=== PATIENT | male | born 1955 | race Caucasian/White ===

== ENCOUNTER 2019-07-07 03:06 | Emergency (ER) | payer MEDICARE, MEDICAID ==
[~2019-07-07] VITALS: Ht 172.7 cm; Wt 100.2 kg
[2019-07-07] MEDS ORDERED: Ketorolac 30mg Inj IV ONE (04:15)
--- NOTE | 2019-07-07 04:17 | Emergency Room Report ---
History of Present Illness General Chief Complaint: Abdominal Pain Source: Patient Present Illness HPI Is a 64-year-old male with no past medical history presents with complaint abdominal pain. Pain was acute onset a few hours ago. Pain is localized to the right flank area. No dysuria frequency. No hematuria. Patient had what sounds like an angiogram to check for blockage in his neck. This was done last week at [facility]. No fever chills but no nausea no vomiting. No diarrhea. Pain is sharp in nature. 7 out of 10. Better now. Nothing made it better. Nothing made it worse. Allergies: Coded Allergies: No Known Allergies (Unverified , 07/07/19) Patient History Past Medical History: see triage record, old chart reviewed Past Surgical History: other Pertinent Family History: none Social History: Denies: smoking Immunizations: other Reviewed Nursing Documentation: PMH: Agreed; PSxH: Agreed Nursing Documentation-PMH Past Medical History: No Stated History Review of Systems Eye: Denies: eye pain, blurred vision ENT: Denies: ear pain, nose congestion, throat swelling Respiratory: Denies: cough, shortness of breath Cardiovascular: Denies: chest pain, palpitations Gastrointestinal: Reports: abdominal pain Musculoskeletal: Denies: back pain, joint pain Skin: Denies: rash Neurological: Denies: headache, numbness Endocrine: Denies: increased thirst, increased urine Hematologic/Lymphatic: Denies: easy bruising All Other Systems: negative except mentioned in HPI Physical Exam Vital Signs Date Time Temp Pulse Resp B/P (MAP) Pulse Ox O2 Delivery O2 Flow Rate FiO2 07/07/19 03:38 98.8 68 14 131/74 (93) 96 Room Air Vitals normal Sp02 EP Interpretation: reviewed, normal General Appearance: well appearing, no apparent distress, alert Head: normocephalic, atraumatic Eyes: bilateral eye PERRL, bilateral eye EOMI ENT: hearing grossly normal, normal pharynx Neck: full range of motion, supple, no meningismus Respiratory: chest non-tender, lungs clear, normal breath sounds Cardiovascular #1: regular rate, rhythm, no murmur Gastrointestinal: normal bowel sounds, no mass, no organomegaly, no bruit, non- distended, tenderness - mild right lower quadrant Musculoskeletal: back normal, normal range of motion, gait/station normal Psychiatric: mood/affect normal Medical Decision Making Diagnostic Impression: Primary Impression: Abdominal pain Qualified Codes: R10.84 - Generalized abdominal pain Additional Impression: Gallstones ER Course Patient with abdominal pain. Could be from gallstone. No evidence of obstruction. No evidence of infection. Patient felt better now. Will discharge home. CT/MRI/US Diagnostic Results CT/MRI/US Diagnostic Results : Imaging Test Ordered: CT abdomen pelvis Impression Read by radiologist. Gallstones. Bilateral renal cyst. Normal appendix. Last Vital Signs Date Time Temp Pulse Resp B/P (MAP) Pulse Ox O2 Delivery O2 Flow Rate FiO2 07/07/19 03:38 98.8 68 14 131/74 (93) 96 Room Air Status: improved Disposition: HOME, SELF-CARE Condition: Stable Scripts Hydrocodone Bit/Acetaminophen 5-325* (NORCO 5-325*) 1 Each Tablet 1 TAB ORAL Q6H PRN for For Pain, #10 TAB 0 Refills Prov: Mil Miller MD 07/07/19 Ibuprofen* (MOTRIN*) 600 Mg Tablet 600 MG ORAL THREE TIMES A DAY, #30 TAB 0 Refills Prov: Mil Miller MD 07/07/19 Referrals: [facility],REFERR (PCP) Additional Instructions: Follow up with your doctor in 7 days. Return if symptoms worsen. Mil Miller MD Jul 07, 2019 04:17
[2019-07-07 04:31] LABS: APPEARANCE,URINE CLEAR; BILIRUBIN, URINE NEGATIVE (NEGATIVE); COLOR,URINE PALE YELLOW; GLUCOSE, URINE (UA) NEGATIVE (NEGATIVE); KETONES,URINE NEGATIVE (NEGATIVE); LEUKOCYTE ESTERASE ,URINE NEGATIVE (NEGATIVE); NITRITE,URINE NEGATIVE (NEGATIVE); PH,URINE 6.5 (4.5-8.0); PROTEIN,URINE NEGATIVE (NEGATIVE); UROBILINOGEN,URINE NORMAL MG/DL (0.0-1.0)
[2019-07-07 04:33] LABS: BASOPHILS % (AUTO) 1.2 % (0.0-2.0); EOSINOPHILS % (AUTO) 2.3 % (0.0-3.0); HEMATOCRIT 39.4 % (42.0-52.0); HEMOGLOBIN 12.9 G/DL (14.2-18.0); LYMPHOCYTES % (AUTO) 20.5 % (20.0-45.0); MEAN CORPUSCULAR VOLUME 100 FL (80-99); MONOCYTES % (AUTO) 7.3 % (1.0-10.0); NEUTROPHILS % (AUTO) 68.8 % (45.0-75.0); PLATELET COUNT 248 K/UL (150-450); RED BLOOD COUNT 3.94 M/UL (4.70-6.10); RED CELL DISTRIBUTION WIDTH 13.1 % (11.6-14.8); WHITE BLOOD COUNT 7.2 K/UL (4.8-10.8)
[2019-07-07 04:42] LABS: ANION GAP 8 mmol/L (5-15); BLOOD UREA NITROGEN 15 mg/dL (7-18); CALCIUM 8.8 MG/DL (8.5-10.1); CARBON DIOXIDE 28 MMOL/L (21-32); CHLORIDE 109 MMOL/L (98-107); CREATININE 0.9 MG/DL (0.55-1.30); SODIUM 145 MMOL/L (136-145)
[2019-07-07 04:48] LABS: ALANINE AMINOTRANSFERASE 43 U/L (12-78); ALBUMIN 3.8 G/DL (3.4-5.0); ALBUMIN/GLOBULIN RATIO 1.2 (1.0-2.7); ALKALINE PHOSPHATASE 97 U/L (46-116); ASPARTATE AMINO TRANSFERASE 41 U/L (15-37); BILIRUBIN,TOTAL 0.6 MG/DL (0.2-1.0)
--- NOTE | 2019-07-07 06:18 | Diagnostic Imaging Report ---
Indication: Abdominal pain Technique: Spiral acquisitions obtained through the abdomen and pelvis. No oral contrast utilized, per emergency room physician request. No IV contrast utilized, per referring physician request. Multiplanar reconstructions were generated. Total dose length product 1633 mGycm. CTDIvol(s) 27 mGy. Dose reduction achieved using automated exposure control Comparison: None Findings: No evidence of colonic diverticulosis or diverticulitis. The appendix is normal. No small bowel distention. No free or loculated intraperitoneal gas or fluid is evident. The distal esophagus, stomach, duodenum are unremarkable. There are small bilateral fat-containing inguinal hernias The bladder demonstrates apparent posterior wall thickening, versus layering dependent debris, favor the former. The prostate is mildly enlarged. Lack of IV contrast limits assessment of the solid organs. The liver is grossly unremarkable. There is unusual appearance of the gallbladder fossa. There is a more peripheral structure with rim calcification and apparent more separate fluid-filled central structure. No biliary ductal dilatation. The pancreas, spleen, adrenals are unremarkable. The kidneys demonstrate numerous cysts, some large. There are also subcentimeter low-attenuation lesions which are too small to characterize. No retroperitoneal or mesenteric mass or adenopathy. There is a retroaortic left renal vein incidentally noted. 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 The right iliac arteries are ectatic but not quite aneurysmal. The abdominal aorta is normal in caliber. The included lung bases demonstrate dependent atelectatic changes and interstitial septal thickening as well as some groundglass opacity. There are extensive degenerative spondylosis changes. Impression: Apparent posterior bladder wall thickening versus layering dependent debris, favor the former. While possibly asymmetric thickening on the basis of chronic bladder outlet obstruction, the possibility of bladder malignancy should be considered. Consider urology consultation. This was discussed with Dr. Yanes at the time of interpretation Prostatomegaly Unusual appearing gallbladder, probably cholelithiasis. However, given unusual apparent bilobed appearance, the possibility of a more central choledochocyst should also be considered. Consider sonography evaluation. 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 This was not described on the preliminary report, was discussed by phone with Dr. Yanes in the emergency room at the time of interpretation The CT scanner at [facility] is accredited by the [employer] and the scans are performed using protocols designed to limit radiation exposure to as low as reasonably achievable to attain images of sufficient resolution adequate for diagnostic evaluation.
[2019-07-07] MEDS ORDERED: NORCO 5-325 TA1 EACH ORAL (06:23)
[2019-07-07] MEDS ORDERED: IBUPROFEN600 MG ORAL (06:23)
[2019-07-07 06:30] VITALS: BP 129/77
[2019-07-07 06:59] VITALS: BP 129/77
== END 2019-07-07 06:55 | disposition home or self-care (01) ==
LOC: EMR 04:00
DX: K80.80 Other cholelithiasis without obstruction (principal); R10.84 Generalized abdominal pain; N28.1 Cyst of kidney, acquired
CPT/HCPCS: 36415; 74176; 80053; 81003; 83690; 85025; 96374; 99284; J1885